=== PATIENT | male | born 1990 | race Caucasian/White ===

== ENCOUNTER 2019-12-20 19:45 | Observation (INO) | payer OTHER ==
[~2019-12-20 19:45] MED LIST: Dexamethasone 20 MG/5 ML VIAL ONE; Esmolol 100 MG/10 ML VIAL ONE; Lidocaine 1% PF 5 ML VIAL ONE; Metoclopramide HCl 10 MG/2 ML VIAL ONE; Ondansetron PF 4 MG/2 ML Vial ONE; PROPOFOL 200 MG/20 ML VIAL ONE
--- NOTE | 2019-12-20 20:05 | RAD ---
XR Finger(s) Rt Min 2 View HISTORY: Crush injury to the right first finger, pain FINDINGS: There are fractures involving the middle and distal phalanges of the index finger. A soft tissue defe ct is present.
[2019-12-20] MEDS ORDERED: Boostrix 0.5 ML VIAL ONE (20:08)
[2019-12-20 20:14] LABS: #Basophils 0.1 thou/uL (0.0-0.2); #Eosinphils 0.8 thou/uL (0.0-0.7); #Lymphocytes 3.7 thou/uL (1.20-3.40); #Monocytes 0.9 thou/uL (0.11-0.59); #Neutrophils 9.4 thou/uL (1.40-6.50); %Basophils 0.8 % (0.0-1.0); %Eosinophils 5.5 % (0.0-10.0); %Lymphocytes 24.9 % (21.0-51.0); %Neutrophils 62.7 % (42.0-75.0); Hemoglobin 15.8 g/dL (14.0-18.0); Mean Corpuscular Hemoglobin 31.3 pg (27.0-31.0); Mean Corpuscular Volume 94.7 fL (78.0-98.0); Mean Platelet Volume 8.3 fL (7.4-10.4); Platelet Count 332 thou/uL (130-400); RBC Distribution Width 11.8 % (11.5-14.5); Red Blood Cell (RBC) Count 5.05 mill/uL (4.70-6.10); White Blood Cell (WBC) Count 14.9 thou/uL (4.8-10.8)
[2019-12-20 20:23] LABS: PTT 25.7 sec (22.9-36.1); Prothrombin Time 13.9 sec (12.0-14.7)
[2019-12-20 20:44] LABS: ALT (SGPT) 44 U/L (8-55); AST (SGOT) 24 U/L (5-34); Albumin 4.4 g/dL (3.5-5.0); Alkaline Phosphatase 107 U/L (40-110); Anion Gap 13 mmol/L (10-20); BUN (Urea Nitrogen) 17 mg/dL (8.9-20.6); Bilirubin, Total 0.6 mg/dL (0.2-1.2); Calc. Creatinine Clearance 0 mL/min (70-130); Calcium 9.2 mg/dL (7.8-10.44); Carbon Dioxide 22 mmol/L (22-29); Chloride 105 mmol/L (98-107); Estimated GFR-MDRD 89; Globulin 2.7 g/dL (2.4-3.5); Glucose 111 mg/dL (70-105); Potassium 3.1 mmol/L (3.5-5.1); Protein, Total 7.1 g/dL (6.0-8.3); Sodium 137 mmol/L (136-145)
[2019-12-20] MEDS ORDERED: Morphine 2 MG/ML VIAL SLOW IVP PRN (20:44)
[2019-12-20] MEDS ORDERED: Dextrose 5% in Water 1,000 ML IV PRN (20:44)
[2019-12-20] MEDS ORDERED: Morphine 4 MG/ML VIAL SLOW IVP PRN (20:44)
[2019-12-20] MEDS ORDERED: Ondansetron ODT 4 MG TAB PO PRN (20:44)
[2019-12-20] MEDS ORDERED: Dextrose 50% Abboject 50 ML SYRINGE SLOW IVP PRN (20:44)
[2019-12-20] MEDS ORDERED: Ibuprofen 600 MG TAB PO PRN (20:47)
[2019-12-20] MEDS ORDERED: traMADol HCl 50 MG TAB PO PRN ×2 (20:47)
[2019-12-20] MEDS ORDERED: Neomycin-Polymyxin 1 ML AMP ONE ×2 (20:48→22:24)
--- NOTE | 2019-12-20 21:34 | HP ---
REQUESTING PHYSICIAN: Dr. Whatley. CONSULTS: Dr. Le, Orthopedic Surgery. CHIEF COMPLAINT: Level 2 trauma activation, crush injury, right hand dominant second digit. HISTORY OF PRESENT ILLNESS: The patient was at work, using a farm equipment when his finger became crushed between a chain and sprocket. The patient has fractures involving the middle and distal phalanges of the index finger. He also has severe soft tissue injury involving the flexor tendon volar aspect. The patient does not have any sensation distally. There is circumferential avulsion of the middle phalanx. Tissue was also missing from the palmar aspect of the index finger. The flexor tendon is completely transected. The distal phalanx is dusky. There is no active bleeding. The patient did receive Ancef 2 g IV and a tetanus injection in the ER. He reports the pain is tolerable at this time. REVIEW OF SYSTEMS: A 10-point review of systems is negative unless otherwise indicated in the above HPI. PAST MEDICAL HISTORY: Denies. PAST SURGICAL HISTORY: Left arm surgery. MEDICATIONS: Denies. ALLERGIES: DENIES. SOCIAL HISTORY: Very occasional alcohol use, denies smoking or illicit drugs. OBJECTIVE: VITAL SIGNS: Blood pressure 156/95, pulse 100, respirations 18, temperature 98.3, and SpO2 of 100% on room air. GENERAL: Well-appearing young male, awake, alert, sitting up on the side of the bed, in no acute distress. No active bleeding. HEENT: Head is atraumatic and normocephalic. Pupils are equal bilateral. Mucous membranes are moist. NECK: No cervical spine tenderness. Trachea midline. RESPIRATORY: Equal chest rise and fall. Bilateral breath sounds clear. No wheezing, rales, or rhonchi. CARDIAC: Regular rate. Regular rhythm. No murmurs. ABDOMEN: Soft, nontender, nondistended. EXTREMITIES: Moves all extremities. Neurovascularly intact. Distal pulses intact. The patient has a circumferential injury, right hand second digit; circumferential avulsion at the middle phalanx. There is tissue missing from the palmar aspect. The distal phalanx is attached by some skin at the volar aspect. No active bleeding. NEUROLOGIC: No focal deficits. GCS 15. LABORATORY DATA: WBC 14.9, RBC 5.05, hemoglobin 15.8, hematocrit 47.8, platelets 332. Chemistry is pending. Finger x-ray impression, fractures involving the middle and distal phalanges of the index finger. Soft tissue defect is present. IMPRESSION: 1. Crush injury, right index finger with farm equipment. 2. Middle and distal open phalanx fractures, index finger with degloving and partial amputation. PLAN: N.p.o. Maintenance IV fluids. Dr. Le with Orthopedic Surgery plans to take the patient to the OR for washout and possible amputation of the injured distal aspect of the finger. Continue antibiotics per Orthopedic Surgery. Pain control. Most likely, the patient will be discharged tomorrow after completion of antibiotics. The plan was discussed with Dr. Orozco, who agrees. The plan was discussed with the patient who agrees. Job ID: [id number] MTDD
[2019-12-20] MEDS ORDERED: Potassium Phosphate 30 MMOL in Sodium Chloride 0.9% 250 ML 250 ML IVPB SCH (22:00)
[2019-12-20] MEDS ORDERED: Bupivacaine PF 0.5% 30 ML VIAL ONE (22:11)
[2019-12-20 23:44] VITALS: BMI 26.6
[2019-12-21] MEDS: Sodium Chloride 0.9% 1,000 ML IV SCH ×2 (00:15→00:57)
[2019-12-21] MEDS: Acetaminophen 500 MG TAB PO SCH ×3 (00:15→08:19)
[2019-12-21] MEDS: Senokot S 8.6-50 MG TAB PO SCH ×2 (00:15→08:18)
[2019-12-21] MEDS: CEFAZOLIN 2 GM in Premix Bag 1 BAG IVPB SCH ×2 (00:16→08:19)
--- NOTE | 2019-12-21 07:50 | RAD ---
Exam: XR Finger(s) Rt Min 2 View HISTORY: Right index finger amputation COMPARISON: 12/20/2019 at 1956 hours. FINDINGS/IMPRESSION: 2 intraoperative fluoroscopic images right index finger are submitted. There has been interval amputa tion of the right index finger at the level of the base of the middle phalanx index finger. Correlation with intraoperative findings is recommended. Fluoroscopy: Time-2.4 seconds Dose-0.08 mGy
[2019-12-21 08:27] VITALS: BP 120/66; TEMP 97.9
[2019-12-21] MEDS ORDERED: Polyethylene Glycol 3350 17 GM Packet PO SCH (09:00)
[2019-12-21] MEDS ORDERED: FLU VACC QS2020-21(6MOS UP)/PF 60 MCG/0.5 ML SYRINGE IM ONE (09:00)
--- NOTE | 2019-12-21 09:24 | OP ---
DATE OF PROCEDURE: 12/20/2019 PREOPERATIVE DIAGNOSIS: Ring avulsion of right index finger with near-complete amputation at level of mid phalanx. POSTOPERATIVE DIAGNOSIS: Ring avulsion of right index finger with near-complete amputation at level of mid phalanx. PROCEDURE PERFORMED: Right index finger amputation at mid phalanx. ANESTHESIA: General. TOURNIQUET TIME: Zero. ESTIMATED BLOOD LOSS: 10 mL. COMPLICATIONS: None. DRAINS: None. SPECIMEN: Amputated finger discarded. INDICATIONS FOR PROCEDURE: The patient is a 29-year-old gentleman, who is status post right dominant index finger near amputation when he caught his finger between sprocket and chain in a cotton gin. The patient sustained an essentially ring avulsion type injury with segmental defect of flexor tendon, loss of both radial and ulnar neurovascular bundles, and just a small dorsal skin bridge intact. He was found to have an insensate and dusky finger tip with some dirt within the wound. After discussion with the patient including risks and benefits, we decided to proceed with completion of amputation at the mid phalanx level. Informed consent has been obtained. I believe all questions answered. DESCRIPTION OF PROCEDURE: The patient was brought to the operating room and a time-out was performed followed by induction of general anesthesia. Next, he was positioned supine on the OR table and a sterile prep and drape was performed of the right upper extremity. Next, the finger was inspected. It was found to be completely dusky with no blood supply to the tip. The small dorsal skin bridge was then divided sharply with a scalpel. He was found to have a partial fracture through the mid phalanx. Using bone snips, this was completed and the finger was removed. Next, the bone was rongeured back a bit farther proximally to allow for some soft tissue closure over the bone tip. Next, hemostat was used to remove some minor debris that was within the wound. This was then followed by irrigation with 2 L of normal saline with antibiotic irrigant added using bulb syringe. At the completion of this, no further foreign material was encountered. At this point, the wound was inspected. He was found to have a radial and ulnar based skin flap that could be brought over the tip of the bone and reapproximated to one another, getting some soft tissue coverage over the remaining middle phalanx. As such, given that these flaps appeared viable at the time of this surgery, some 3-0 nylon was used to stitch in interrupted fashion to accomplish this with closure of the tip of the skin in a very loose fashion. Two additional 3-0 nylon sutures were used, one dorsally and one on the palmar surface to just further insure that we had soft tissue coverage of the bone, although was performed in a loose fashion to allow for drainage. At the completion of this, Xeroform gauze and bulky soft dressing were applied to the hand, and then the patient was transferred to recovery room in stable condition. There were no complications. He tolerated the procedure well. Job ID: [id number]
--- NOTE | 2019-12-22 20:48 | DIS ---
DATE OF ADMISSION: 12/20/2019 DATE OF DISCHARGE: 12/21/2019 ADMISSION DIAGNOSES: 1. Status post crush injury to right index finger from farm equipment. 2. Open phalanx fracture of right index finger with degloving and partial amputation. CONSULTATION: Orthopedics, Dr. Le. PROCEDURE: Right index finger amputation at mid phalanx. SUMMARY: The patient is a 29-year-old man, who was reportedly using farm equipment when his finger was caught between a chain and a sprocket. The patient was brought by privately on vehicle to the emergency department where he underwent evaluation and examination, was noted to have the above injury. The patient will be taken to the operating room the following morning to undergo his above procedure, which he tolerated well. Postoperatively, the patient's pain was controlled. He was tolerating a diet and was able to be discharged home. The patient was discharged home with instructions to use Tylenol, Motrin. He was given a prescription of Augmentin and Ultram. The patient will follow up with Dr. Le in 7 days, sooner as needed. The patient was given return precautions by the Orthopedic Service. Job ID: [id number]
== END 2019-12-21 11:40 | disposition home or self-care (01) ==
LOC: ERS 19:45 → SDC/OP 21:51 → SURG A 23:10
PROVIDERS: ADMIT Surgery; ATTEND Surgery
PROC: 0X6N0Z2 Detachment at Right Index Finger, Mid, Open Approach (ICD-10-PCS; principal; 2019-12-20)
DX: S68.620A Partial traumatic transphalangeal amputation of right index finger, initial encounter (principal); S67.190A Crushing injury of right index finger, initial encounter; W31.82XA Contact with other commercial machinery, initial encounter; Y99.0 Civilian activity done for income or pay
CPT/HCPCS: 36415; 76000; 80053; 85025; 85610; 85730; 86850; 86900; 86901; 90471; 90715; 96365; 96366; 96367; 96376; G0378; J0690; J1100; J2405; J2704; J2765; J7050; S0020